=== PATIENT | female | born 1990 | race African-American/Black ===

== ENCOUNTER 2024-04-28 09:07 | Inpatient (IN) | payer OTHER, SELFPAY ==
--- NOTE | 2024-04-28 09:13 | ED_ITS ---
HPI - General Adult General Chief complaint: Psychiatric Symptoms Stated complaint: Crisis Time Seen by Provider: 04/28/24 09:13 Source: patient Mode of arrival: ambulatory Limitations: no limitations History of Present Illness ED Provider: Dorothy Garcia PA-C HPI narrative: Patient is a 33 year old assigned female at with a history of anxiety and recent wisdom tooth removal presenting to the emergency department today with suicidal ideation and increasing anxiety. Patient states that she has been having increasing anxiety and suicidal ideation. Patient denies any dizziness, lightheadedness, abdominal pain, nausea, vomiting, fever, chills, blurry vision, double vision, loss of vision, chest pain, difficulty breathing, shortness of breath, back pain, night sweats, pain with urination, increased urinary frequency, increased urinary urgency, blood in her urine or stool, syncope or a near syncopal episode, recent trauma or falls, bowel incontinence, bladder incontinence, or any other complaints at this time. Relieving factors: none Exacerbating factors: none Associated symptoms: denies other symptoms Treatments prior to arrival: none Related Data Home Medications ?Medication ?Instructions ?Recorded ?Confirmed amoxicillin 500 mg capsule 500 mg PO TID 04/28/24 04/28/24 escitalopram oxalate 10 mg tablet 10 mg PO DAILY 04/28/24 04/28/24 ibuprofen 800 mg tablet 800 mg PO TID 04/28/24 04/28/24 ondansetron HCl 4 mg tablet 4 mg PO Q8H PRN Nausea 04/28/24 04/28/24 Allergies Allergy/AdvReac Type Severity Reaction Status Date / Time No Known Allergies Allergy Verified 04/28/24 09:32 Review of Systems 2 Constitutional: Constitutional: Reports no additional constitutional complaints, Denies chills, Denies fever(s) and Denies night sweats Eyes: Eyes: Reports no additional eye complaints, Denies blurry vision, Denies change in vision, Denies diplopia, Denies eye discharge, Denies loss of vision and Denies eye pain ENT: Denies dizziness Cardiovascular: Cardiovascular: Reports no additional cardiovascular complaints, Denies chest pain, Denies lightheadedness, Denies Loss of Consciousness and Denies dyspnea Respiratory: Respiratory: Reports no additional respiratory complaints and Denies dyspnea Gastrointestinal: Gastrointestinal: Reports no additional gastrointestinal complaints, Denies abdominal pain, Denies melena, Denies hematochezia, Denies change in bowel habits and Denies change in stool character Genitourinary: Genitourinary: Denies hematuria, Denies urinary frequency, Denies dysuria, Denies urinary incontinence, Denies urinary hesitancy and Denies urinary urgency Musculoskeletal: Musculoskeletal: Reports no additional musculoskeletal complaints, Denies numbness and Denies tingling Neurologic: Denies dizziness, Denies loss of vision, Denies numbness and Denies tingling Psychiatric: Psychiatric: Reports anxiety, Denies homicidal ideation and Reports suicidal ideation Endocrine: Endocrine: Reports no additional endocrine complaints Hematologic/Lymphatic: Hematologic/Lymphatic: Reports no additional hematologic/lymphatic complaints Allergic/Immunologic: Allergic/Immunologic: Reports no additional allergic/immunologic complaints [facility] Past Medical History Attestation statement: The following information was validated with the patient. Source: old records reviewed and nursing notes reviewed Social History Social History Smoked in Last 30 Days: No Use of substances other than those prescribed or required for medical reasons: Yes Substance Use Type: Marijuana Substance Use Frequency: Occasionally Advance Directives: No Advance Directives Information Provided: Yes Patient : No Physical Exam ED Vital Signs: Vital Signs - 24 hr 04/28/24 09:31 04/28/24 09:32 Temperature 98.1 F Pulse Rate 74 Respiratory Rate 16 14 Blood Pressure 138/85 Pulse Oximetry 97 Oxygen Delivery Method Room Air BMI result Body Mass Index 57.7 Const General: cooperative, no acute distress, alert and awake Nutritional Appearance: well nourished Orientation/consciousness: patient oriented x3 Limitations: no limitations [facility] Head: Yes normal to inspection and Yes atraumatic Ears: hearing grossly normal bilaterally and external ears normal General nose exam: Normal external nose present, no nasal discharge noted and no epistaxis Face and sinus: Yes normal facial exam, No abrasion and No laceration Mouth: Normal oral and palatal mucosa present, no drooling and no muffled voice Eyes General: appearance normal, both eyes and all related structures Periorbital: periorbital findings normal Eyelids: Yes eyelids normal Conjunctivae: conjunctivae normal Pupils: Equal, round and reactive pupils present EOM: EOMs intact bilaterally Neck Neck: Yes normal visual inspection, Yes full ROM and Yes no lymphadenopathy Chest Chest palpation & inspection: normal inspection of the chest Resp Effort & Inspection: normal respiratory effort and able to speak in complete sentences GI Inspection: Yes normal to inspection Neuro General: patient oriented x3 and moves all extremities Cranial nerves: Yes Equal, round and reactive pupils present Cognition (Neuro): normal cognition Extrem General: Yes normal to inspection, Yes full ROM and Yes capillary refill normal Psych Appearance: grossly normal Mental Status: mental status grossly normal Affect: Sad affect present Attitude: cooperative Thought process: Normal thought process present Thought content: Suicidality present Medications Administered Generic Name Dose Route Start Last Admin Trade Name Jaspreet PRN Reason Stop Dose Admin Amoxicillin 500 mg 04/28/24 10:30 04/28/24 10:56 Amoxicillin 500 Mg Capsule PO 500 mg TID RIVER Administration Ibuprofen 800 mg 04/28/24 10:30 04/28/24 10:56 Ibuprofen 800 Mg Tablet PO 800 mg TID R[place] Administration Medical Decision Making Medical Decision Making MDM Narrative: Patient is a 33 year old assigned female at with a history of anxiety and recent wisdom tooth removal presenting to the emergency department today with increased anxiety and SI. Patient's physical exam was as noted in the physical exam portion of this note. Patient's blood work was unremarkable. Patient's urine showed no acute process. I explained my physical exam findings as well as all test results to the patient. I answered all questions asked by the patient. CARE team evaluated the patient and recommended inpatient level of care. Physician observation ended at 1304. Observation care revealed the the patient does meet necessity for psychiatric hospitalization. Final disposition discussed with the patient who verbalized understanding and agreement. Patient completed observation care at 1304, total time spent in observation care was 3 hours and 9 minutes. Patient verbalized agreement and understanding with this treatment plan and admission. Differential Diagnosis Differential Diagnoses: The differential diagnosis associated with the presentation includes Suicidal ideation Anxiety Admission/Observation Consideration of admission/observation: Escalation of care including admission/observation considered Patient admitted for psychiatric hospitalization. Consult Healthcare Provider Management of the patient was discussed with: Behavioral Health Provider (spoke to the CARE team as noted in the MDM Rationale portion of this note. ) Lab Data [facility] Lab Attestation statement: I reviewed the patient's lab results. My interpretation of these results are in the MDM Rationale portion of this note. 04/28/24 09:52 04/28/24 09:52 Labs: Lab Results 04/28/24 Range/Units 09:52 WBC 6.5 (4.8-10.8) X10*3/uL RBC 4.54 (4.20-5.50) X10*6/uL Hgb 13.5 (12.0-16.0) g/dl Hct 38.6 (37.0-47.0) % MCV 85.0 (80.0-98.0) fL MCH 29.7 (27.0-33.0) pg MCHC 35.0 (31.0-35.0) g/dl RDW 12.3 (11.0-16.0) % Plt Count 316 (160-400) X10*3/uL MPV 9.0 L (9.4-12.3) fL Immature Gran % (Auto) 0.0 (0.0-0.4) % Neut % (Auto) 66.1 (45-73) % Lymph % (Auto) 25.1 (20-40) % [place] % (Auto) 7.8 (2-11) % Eos % (Auto) 0.2 (0-4) % Baso % (Auto) 0.8 (0-2) % Lymph # (Auto) 1.6 (1.2-4.9) X10*3/uL [place] # (Auto) 0.5 (0.1-1.2) X10*3/uL Eos # (Auto) 0.0 (0.0-0.4) X10*3/uL Baso # (Auto) 0.1 (0.0-0.2) X10*3/uL Abs Immat Gran (auto) 0.00 (0.00-0.03) X10*3/uL Absolute Neuts (auto) 4.3 (2.0-8.3) x10*3/uL Absolute Nucleated RBC 0.000 (0.0-0.012) X10*3/uL Nucleated RBC % (auto) 0.0 (0.0-0.2) /100WBC Sodium 141 (135-145) mmol/L Potassium 3.5 (3.3-5.1) mmol/L Chloride 105 (96-108) mmol/L Carbon Dioxide 26 (22-29) mmol/L Anion Gap 14 (12-20) BUN 8 L (9-16) mg/dL Creatinine 0.83 (0.5-1.4) mg/dL Estim Creat Clear Calc 139.1 Estimated GFR > 60 Random Glucose 102 (60-115) mg/dL Calcium 9.8 (8.4-10.2) mg/dL Total Bilirubin 0.7 (0.0-1.0) mg/dL AST 17 (5-31) U/L ALT 28 (0-31) U/L Alkaline Phosphatase 76 (39-117) U/L Total Protein 7.6 (6.5-8.0) g/dL Albumin 4.4 (3.5-5.0) g/dL Salicylates < 5.0 L (15-30) mg/dL Acetaminophen < 3 (<30) mcg/mL Ethyl Alcohol < 10 mg/dL Critical Care Time Critical Care Time Critical Care Time: Yes Total Critical Care Time: 34 Attestation: I spent 34 minutes of Critical Care Time with this patient. This does not include time spent on separately reported billable procedures. Discharge Plan Discharge Clinical Impression: Suicidal ideation Patient Disposition: Admitted As Inpatient Interventions: [place]-Suicide Risk Severity Scale Last Done: 04/28/24 09:33
[2024-04-28 09:31] VITALS: BP 138/85; PULSE 74; RESP 16; TEMP 36.7; O2SAT 97; BMI 57.7
[2024-04-28 09:32] VITALS: RESP 14
[2024-04-28 09:59] LABS: MANUAL DIFF FLAG NO
[2024-04-28 10:00] LABS: Basophils Absolute Auto 0.1 X10*3/uL (0.0-0.2); Basophils Percent Auto 0.8 % (0-2); Eosinophils Percent Auto 0.2 % (0-4); Hematocrit 38.6 % (37.0-47.0); Hemoglobin 13.5 g/dl (12.0-16.0); Lymphocytes Absolute Auto 1.6 X10*3/uL (1.2-4.9); Lymphocytes Percent Auto 25.1 % (20-40); Mean Corpuscular Hemoglobin 29.7 pg (27.0-33.0); Monocytes Absolute Auto 0.5 X10*3/uL (0.1-1.2); Monocytes Percent Auto 7.8 % (2-11); Neutrophils Absolute Auto 4.3 x10*3/uL (2.0-8.3); Neutrophils Percent Auto 66.1 % (45-73); Platelet Count 316 X10*3/uL (160-400); Red Blood Count 4.54 X10*6/uL (4.20-5.50); Red Cell Distribution Width 12.3 % (11.0-16.0); White Blood Count 6.5 X10*3/uL (4.8-10.8)
[2024-04-28 10:22] LABS: Alanine Aminotransferase 28 U/L (0-31); Albumin Level 4.4 g/dL (3.5-5.0); Alkaline Phosphatase 76 U/L (39-117); Anion Gap 14 (12-20); Aspartate Amino Transferase 17 U/L (5-31); Bilirubin Total 0.7 mg/dL (0.0-1.0); Blood Urea Nitrogen 8 mg/dL (9-16); Calcium 9.8 mg/dL (8.4-10.2); Carbon Dioxide 26 mmol/L (22-29); Chloride 105 mmol/L (96-108); Creatinine Clr Calc Pharmacy 139.1; Estimated Glomerular Filt Rate > 60; Ethanol < 10 mg/dL; Glucose Random 102 mg/dL (60-115); Potassium 3.5 mmol/L (3.3-5.1); Sodium 141 mmol/L (135-145); Total Protein 7.6 g/dL (6.5-8.0)
[2024-04-28 10:23] LABS: Acetaminophen LAB < 3 mcg/mL (<30)
[2024-04-28] MEDS: Ibuprofen 800 MG TABLET PO ×3 (10:56→20:41)
[2024-04-28] MEDS: Amoxicillin 500 MG CAPSULE PO ×3 (10:56→20:43)
[2024-04-28 11:08] LABS: Salicylate < 5.0 mg/dL (15-30)
--- NOTE | 2024-04-28 12:57 | PC.NURSE ---
pt reminded of need for urine sample, she states she will try when she gets up
[2024-04-28] MEDS: hydrOXYzine HCL 25 MG TABLET PO (13:42)
[2024-04-28 14:22] VITALS: BMI 53.1
[2024-04-28 14:24] VITALS: BP 136/80; PULSE 70; RESP 16; TEMP 36.6; O2SAT 97
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
[2024-04-28 15:56] LABS: Urine Pregnancy NEGATIVE (NEGATIVE)
[2024-04-28 15:58] LABS: Amphetamine Screen Urine Not Detected (Not Detect); Barbiturates, Urine Not Detected (Not Detect); Benzodiazepines Screen Urine Not Detected (Not Detect); Buprenorphine Scr Not Detected (Not Detect); Cannabinoid Screen Urine POSITIVE (Not Detect); Cocaine Screen Urine Not Detected (Not Detect); Fentanyl, urine Not Detected (Not Detect); Methadone Screen, Urine Not Detected (Not Detect); Opiate Screen Urine Not Detected (Not Detect); Oxycodone Screen Urine Not Detected (Not Detect); Phencyclidine Screen Urine Not Detected (Not Detect)
[2024-04-28 15:59] LABS: UPreg QC Valid YES
[2024-04-28 16:13] LABS: Appearance Urine Cloudy; Color Urine Dark Yellow; Glucose Urine UA Negative (Negative); Leukocyte Esterase Urine Negative (Negative); Nitrite Urine Negative (Negative); Specific Gravity - Urine >= 1.030 (1.005-1.025); UMIC TRIGGER UA YES; Urine Blood Negative (Negative); Urine Ketones 80 mg/dL (Negative); Urine Protein 30 (1+) mg/dL (Neg-Trace)
[2024-04-28 17:55] LABS: Bacteria Urine None Seen (None Seen); RBC Urine 0-2 /HPF (0-2); WBC Urine 0-5 /HPF (0-5)
[2024-04-28 20:00] VITALS: BP 122/55; PULSE 61; TEMP 36.4; O2SAT 98
[2024-04-28] MEDS: Mirtazapine 7.5 MG TABLET PO (20:42)
[2024-04-28] MEDS: diphenhydrAMINE HCL 25 MG CAPSULE 50 MG PO (20:42)
[2024-04-29] MEDS: traZODone HCL 50 MG TABLET PO (02:51)
[2024-04-29] MEDS: hydrOXYzine HCL 25 MG TABLET PO (03:56)
--- NOTE | 2024-04-29 04:06 | PC.NURSE ---
Patient medicated with Benadryl 50 mg at HS with minimal effect, Trazadone at 0245 and Atarax at 0400. Will continue to monitor.
[2024-04-29 08:00] VITALS: BP 129/69; PULSE 75; TEMP 36.9; O2SAT 99
[2024-04-29 08:51] LABS: Estimated Average Glucose 108 mg/dL; Hemoglobin A1c % 5.4 % (<6.0)
[2024-04-29 09:01] LABS: Alanine Aminotransferase 28 U/L (0-31); Albumin Level 4.6 g/dL (3.5-5.0); Alkaline Phosphatase 87 U/L (39-117); Anion Gap 15 (12-20); Aspartate Amino Transferase 21 U/L (5-31); Bilirubin Total 0.7 mg/dL (0.0-1.0); Blood Urea Nitrogen 7 mg/dL (9-16); Carbon Dioxide 27 mmol/L (22-29); Chloride 105 mmol/L (96-108); Cholesterol 195 mg/dL (<200); Creatinine Clr Calc Pharmacy 117.6; Estimated Glomerular Filt Rate > 60; Glucose Fasting 95 mg/dL (60-99); HDL Cholesterol 33 mg/dL (>40); LDL Cholesterol Calculated 145 mg/dL (<100); Potassium 3.8 mmol/L (3.3-5.1); Sodium 143 mmol/L (135-145); Triglycerides 88 mg/dL (<150)
[2024-04-29 09:16] LABS: Free T4 (Free Thyroxine) 1.12 ng/dL (0.71-1.85); Thyroid Stimulating Hormone 0.41 uIU/mL (0.32-4.0)
[2024-04-29] MEDS: Ibuprofen 800 MG TABLET PO ×3 (09:24→20:42)
[2024-04-29] MEDS: Amoxicillin 500 MG CAPSULE PO ×3 (09:24→20:41)
[2024-04-29] MEDS: Escitalopram Oxalate 10 MG TABLET PO (09:24)
[2024-04-29 09:31] LABS: Folate 11.3 ng/mL (> or = 4.0); Vitamin B12 814 pg/mL (200-900)
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
[2024-04-29 20:28] VITALS: BP 134/63; PULSE 88; RESP 16; TEMP 36.7; O2SAT 97
[2024-04-29] MEDS: cloNIDine HCL 0.1 MG TABLET PO (20:42)
[2024-04-30 08:00] VITALS: BP 128/83; PULSE 97; RESP 18; TEMP 37.1; O2SAT 97
[2024-04-30] MEDS: Ibuprofen 800 MG TABLET PO ×3 (08:31→20:41)
[2024-04-30] MEDS: Escitalopram Oxalate 20 MG TABLET PO (08:31)
[2024-04-30] MEDS: Amoxicillin 500 MG CAPSULE PO ×3 (08:32→20:41)
[2024-04-30] MEDS: hydrOXYzine HCL 25 MG TABLET PO (08:47)
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
[2024-04-30 13:13] VITALS: BP 123/75
[2024-04-30] MEDS: cloNIDine HCL 0.1 MG TABLET PO ×2 (13:13→20:41)
[2024-04-30 20:36] VITALS: BP 116/63; PULSE 81; RESP 18; TEMP 36.4; O2SAT 99
[2024-05-01] MEDS: traZODone HCL 100 MG TABLET PO (00:50)
[2024-05-01] MEDS: hydrOXYzine HCL 25 MG TABLET PO (01:31)
[2024-05-01 08:00] VITALS: BP 126/75; PULSE 68; RESP 18; TEMP 36.7; O2SAT 98
[2024-05-01] MEDS: Ibuprofen 800 MG TABLET PO ×3 (08:01→20:39)
[2024-05-01] MEDS: Escitalopram Oxalate 20 MG TABLET PO (08:02)
[2024-05-01] MEDS: Amoxicillin 500 MG CAPSULE PO ×3 (08:02→20:39)
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
[2024-05-01 20:00] VITALS: BP 134/78; PULSE 81; RESP 16; TEMP 36.4; O2SAT 97
[2024-05-01] MEDS: cloNIDine HCL 0.1 MG TABLET PO (20:39)
[2024-05-02 04:49] VITALS: BP 124/66
[2024-05-02] MEDS: hydrOXYzine HCL 25 MG TABLET PO (04:49)
[2024-05-02] MEDS: cloNIDine HCL 0.1 MG TABLET PO ×2 (04:49→21:38)
[2024-05-02 07:55] VITALS: BP 90/54; PULSE 59; RESP 17; TEMP 37.4; O2SAT 97
[2024-05-02] MEDS: Ibuprofen 800 MG TABLET PO ×2 (08:23→18:36)
[2024-05-02] MEDS: Amoxicillin 500 MG CAPSULE PO ×3 (08:23→21:38)
[2024-05-02] MEDS: Escitalopram Oxalate 20 MG TABLET PO (08:24)
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
[2024-05-02 19:47] VITALS: BP 134/88; PULSE 81; RESP 18; TEMP 36.2
[2024-05-02] MEDS: QUEtiapine Fumarate 50 MG TABLET PO (21:39)
[2024-05-03] MEDS: traZODone HCL 100 MG TABLET PO (01:48)
[2024-05-03] MEDS: diphenhydrAMINE HCL 25 MG CAPSULE 50 MG PO (01:48)
[2024-05-03 08:00] VITALS: BP 104/58; PULSE 67; RESP 16; TEMP 37.2; O2SAT 97
[2024-05-03] MEDS: Amoxicillin 500 MG CAPSULE PO ×3 (08:53→20:57)
[2024-05-03] MEDS: Escitalopram Oxalate 20 MG TABLET PO (08:53)
[2024-05-03] MEDS: Ibuprofen 800 MG TABLET PO ×3 (09:07→20:57)
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
[2024-05-03] MEDS: hydrOXYzine HCL 25 MG TABLET PO (18:52)
[2024-05-03 20:00] VITALS: BP 133/61; PULSE 78; RESP 16; TEMP 36.3; O2SAT 98
[2024-05-03] MEDS: cloNIDine HCL 0.1 MG TABLET PO (20:57)
[2024-05-04] MEDS: hydrOXYzine HCL 25 MG TABLET PO (04:09)
[2024-05-04 08:00] VITALS: BP 125/68; PULSE 79; TEMP 37.4; O2SAT 98
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
[2024-05-04] MEDS: Escitalopram Oxalate 20 MG TABLET PO (10:00)
[2024-05-04] MEDS: Amoxicillin 500 MG CAPSULE PO ×3 (10:00→20:44)
[2024-05-04] MEDS: QUEtiapine Fumarate 25 MG TABLET PO (10:07)
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
[2024-05-04] MEDS: Ibuprofen 800 MG TABLET PO ×2 (14:40→20:44)
[2024-05-04] MEDS: risperiDONE 0.5 MG TABLET PO ×2 (15:18→20:44)
[2024-05-04 19:41] VITALS: BP 136/73; PULSE 86; RESP 15; TEMP 36.4; O2SAT 99
[2024-05-04] MEDS: cloNIDine HCL 0.1 MG TABLET PO (20:45)
[2024-05-04] MEDS: QUEtiapine Fumarate 50 MG TABLET PO (20:49)
[2024-05-05 07:00] VITALS: BMI 52.9
[2024-05-05 07:51] VITALS: BP 136/73; PULSE 81; RESP 20; TEMP 36.9; O2SAT 98
[2024-05-05] MEDS: Escitalopram Oxalate 20 MG TABLET PO (08:14)
[2024-05-05] MEDS: cloNIDine HCL 0.1 MG TABLET PO ×2 (08:14→22:40)
[2024-05-05] MEDS: Ibuprofen 800 MG TABLET PO ×3 (08:15→22:40)
[2024-05-05] MEDS: Amoxicillin 500 MG CAPSULE PO ×3 (08:15→22:41)
[2024-05-05] MEDS: risperiDONE 0.5 MG TABLET PO ×2 (08:15→22:41)
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
[2024-05-05 20:00] VITALS: BP 144/81; PULSE 81; RESP 18; TEMP 36.5; O2SAT 98
[2024-05-05] MEDS: QUEtiapine Fumarate 50 MG TABLET PO (22:41)
[2024-05-05] MEDS: traZODone HCL 100 MG TABLET PO (22:41)
--- NOTE | 2024-05-06 | ECG_ITS ---
Test Reason : qtc Blood Pressure : / mmHG Vent. Rate : 072 BPM Atrial Rate : 072 BPM P-R Int : 214 ms QRS Dur : 108 ms QT Int : 392 ms P-R-T Axes : 051 062 051 degrees QTc Int : 429 ms Sinus rhythm with 1st degree A-V block Nonspecific ST and T wave abnormality Abnormal ECG No previous ECGs available Referred By: Sandeep Burgess Electronically Signed By:DAR PALMA
[2024-05-06 08:00] VITALS: BP 98/62; PULSE 68; TEMP 36.8; O2SAT 98
[2024-05-06] MEDS: Ibuprofen 800 MG TABLET PO ×2 (09:45→21:16)
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
[2024-05-06 10:23] VITALS: BP 98/62
[2024-05-06] MEDS: cloNIDine HCL 0.1 MG TABLET PO ×2 (10:23→21:17)
[2024-05-06] MEDS: Amoxicillin 500 MG CAPSULE PO ×3 (10:24→21:17)
[2024-05-06] MEDS: Escitalopram Oxalate 20 MG TABLET PO (10:24)
[2024-05-06] MEDS: risperiDONE 0.5 MG TABLET PO ×2 (10:26→21:17)
[2024-05-06 20:00] VITALS: BP 115/73; PULSE 79; RESP 14; TEMP 36.4; O2SAT 94
[2024-05-06] MEDS: QUEtiapine Fumarate 50 MG TABLET PO (21:17)
[2024-05-06] MEDS: QUEtiapine Fumarate 25 MG TABLET PO (21:17)
[2024-05-06] MEDS: traZODone HCL 100 MG TABLET PO (21:21)
[2024-05-07 07:57] VITALS: BP 131/78; PULSE 79; TEMP 36.8; O2SAT 98
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
[2024-05-07] MEDS: Amoxicillin 500 MG CAPSULE PO ×3 (09:02→21:31)
[2024-05-07] MEDS: risperiDONE 0.5 MG TABLET PO ×2 (09:02→21:31)
[2024-05-07 09:03] VITALS: BP 131/78
[2024-05-07] MEDS: Escitalopram Oxalate 10 MG TABLET 30 MG PO (09:03)
[2024-05-07] MEDS: cloNIDine HCL 0.1 MG TABLET PO ×2 (09:03→21:31)
[2024-05-07] MEDS: Ibuprofen 800 MG TABLET PO ×2 (09:06→21:43)
[2024-05-07 19:50] VITALS: BP 98/57; PULSE 66; RESP 16; TEMP 36.4; O2SAT 99
[2024-05-07 21:28] VITALS: BP 115/65; PULSE 66; TEMP 36.4
[2024-05-07] MEDS: QUEtiapine Fumarate 50 MG TABLET PO (21:31)
[2024-05-07] MEDS: traZODone HCL 100 MG TABLET PO (21:31)
[2024-05-08 07:42] VITALS: BP 137/77; PULSE 78; RESP 16; TEMP 37.2; O2SAT 98
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
[2024-05-08] MEDS: Escitalopram Oxalate 10 MG TABLET 30 MG PO (08:08)
[2024-05-08 08:09] VITALS: BP 137/77
[2024-05-08] MEDS: Amoxicillin 500 MG CAPSULE PO (08:09)
[2024-05-08] MEDS: risperiDONE 0.5 MG TABLET PO ×2 (08:09→20:48)
[2024-05-08] MEDS: cloNIDine HCL 0.1 MG TABLET PO ×2 (08:09→20:49)
[2024-05-08 20:00] VITALS: BP 132/78; PULSE 69; RESP 16; TEMP 36.5; O2SAT 99
[2024-05-08] MEDS: Ibuprofen 800 MG TABLET PO (22:45)
[2024-05-08] MEDS: QUEtiapine Fumarate 50 MG TABLET PO (23:50)
[2024-05-08] MEDS: hydrOXYzine HCL 25 MG TABLET PO (23:50)
[2024-05-09 08:07] VITALS: BP 120/69; PULSE 71; TEMP 36.6; O2SAT 98
[2024-05-09 09:22] VITALS: BP 120/69
[2024-05-09] MEDS: Escitalopram Oxalate 10 MG TABLET 30 MG PO (09:22)
[2024-05-09] MEDS: cloNIDine HCL 0.1 MG TABLET PO ×2 (09:22→21:10)
[2024-05-09] MEDS: risperiDONE 0.5 MG TABLET PO ×2 (09:23→21:10)
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
[2024-05-09 20:00] VITALS: BP 122/71; PULSE 81; RESP 16; TEMP 36.8; O2SAT 98
[2024-05-09] MEDS: QUEtiapine Fumarate 50 MG TABLET PO (21:10)
[2024-05-09] MEDS: Ibuprofen 800 MG TABLET PO (21:10)
[2024-05-09] MEDS: traZODone HCL 100 MG TABLET PO (21:10)
[2024-05-10 08:00] VITALS: BP 113/56; PULSE 72; RESP 20; TEMP 36.4; O2SAT 98
[2024-05-10] MEDS: risperiDONE 0.5 MG TABLET PO (08:53)
[2024-05-10] MEDS: Escitalopram Oxalate 10 MG TABLET 30 MG PO (08:53)
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
[2024-05-10 09:14] VITALS: BP 113/56
[2024-05-10] MEDS: cloNIDine HCL 0.1 MG TABLET PO (09:14)
== END 2024-05-10 11:18 | disposition home or self-care (01) | DRG 751 ==
LOC: HO.ED 10:14 → HO.PM5 13:17
PROVIDERS: Physician Assistant Medical; Admitting Provider Clinical Nurse Specialist Psychiatric/Mental Health, Adult; Emergency Provider Emergency Medicine; PCP Physician Assistant Medical; Visit Provider Psychiatry & Neurology Psychiatry
DX: F33.2 Major depressive disorder, recurrent severe without psychotic features (principal); R45.851 Suicidal ideations; F43.10 Post-traumatic stress disorder, unspecified; Z79.899 Other long term (current) drug therapy
CPT/HCPCS: 36415; 80053; 80061; 80143; 80179; 80307; 81001; 81003; 81025; 82607; 82746; 83036; 84439; 84443; 85025; 93005; 99285

== ENCOUNTER → 2024-04-28 13:08 | Outpatient (BNV) | payer OTHER, SELFPAY | PROVIDERS: Admitting Provider Clinical Nurse Specialist Psychiatric/Mental Health, Adult; Emergency Provider Emergency Medicine; PCP Physician Assistant Medical; Visit Provider Psychiatry & Neurology Psychiatry | DX: F33.2 Major depressive disorder, recurrent severe without psychotic features (principal); F43.11 Post-traumatic stress disorder, acute | CPT/HCPCS: 90792; 99231; 99232; 99239 ==

== ENCOUNTER → 2024-06-10 08:00 | Outpatient (BNV) | payer BC, SELFPAY | PROVIDERS: Visit Provider Psychiatry & Neurology Psychiatry | DX: F33.2 Major depressive disorder, recurrent severe without psychotic features (principal); F43.10 Post-traumatic stress disorder, unspecified; F14.11 Cocaine abuse, in remission | CPT/HCPCS: 90792; 99213; 99214 ==

== ENCOUNTER 2024-06-22 08:45 | Outpatient (RCR) | payer BC, SELFPAY ==
[2024-06-08 09:45] VITALS: BMI 56.1
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
--- NOTE | 2024-06-09 16:07 | HO.PHP ---
Client's case has been opened and reviewed in team.
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
--- NOTE | 2024-06-17 12:42 | P.PNPSP_ITS ---
Subjective Subjective Date of Service: 06/17/24 Reason For Visit: MDD Interim History: Patient seen for follow-up. Reviewed past week. No major events or issues. it's been good back on the risperidone, taking it once a day in the AM it stabilizes me really helps with irritability, agitation and emotional reactivity. She's not acting out at boyfriend, being snippy, giving dirty looks like I'm gonna rip off his head . Has not needed to take more than once a day. 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 She denies any adverse effects of stiffness in jaw/neck, dysphagia, sedation or other AE related to risperidone. She says she has been eyeing the clonidine as she felt more physically calm with it and would like to utilize it again as a prn for anxiety, especially since the hydroxyzine can make her too drowsy to take during the day. She feels clonidine during the day will be a better fit (rather than risperidone and hydroxyzine) once she has returned to work. People at work can piss me off . She is able to manage herself professionally, no behavioral issues, and is not concerned she will pop off at anyone (says it's just usual grind of dealing with being a brown person in a majority white environment, racial, gender biases, microaggressions, and other unrelated typical workplace drama. but says it takes a toll on her physically restraining herself from speaking out more. I end up carrying a lot of it as anxiety in my body . Sleeping 7-8 hours without the need for PRNs. Appetite and energy intact. Denies any SI, HI, AH, VH. Medication Compliance: Yes Side effects from medications: No Attending Groups: Yes Review of Systems Acute medical concerns: No Mental Status Exam Mental Status Exam Narrative: Alert, oriented, in no acute distress. Calm, cooperative, engaged. No psychomotor agitation or neurovegetative retardation. Eye contact maintained. Mood anxious, depressed, sometimes irritable. Affect variable, appropriate without notable irritability or lability. Speech normal. Thought process linear, coherent, goal-directed. Thought content related to stressors, transient helplessness, no hopelessness noted, denies SI, intention, urge or plan. Endorses transient vague aggressive ideation with intention, urge or plan. Denies any HI. No paranoia or delusional content elicited. No evidence of psychosis. Insight and judgment - fair but adequate Diagnostics Vital Signs (24Hr): BMI result Body Mass Index 56.1 Assessment & Plan Assessment & Plan (1) MDD (major depressive disorder), recurrent severe, without psychosis: Status: Acute Code(s): F33.2 - Major depressive disorder, recurrent severe without psychotic features Assessment and Plan: r/o other mood disorders (2) PTSD (post-traumatic stress disorder): Status: Acute Code(s): F43.10 - Post-traumatic stress disorder, unspecified (3) Cocaine abuse in remission: Status: Acute Code(s): F14.11 - Cocaine abuse, in remission Plan continue escitalopram 20 mg qd restart clonidine 0.1 mg BOD prn anxiety continue risperidone 0.5 mg BID prn irritability/agitation continue trazodone 100 mg qhs prn sleep (patient not using/needing) may consider discontinuing and using hydroxyzine for sleep continue hydroxyzine 25 mg TID prn anxiety. And sleep continue quetiapine 50 mg qhs prn insomnia (patient not using/needing) may consider discontinuing patient not longer taking ondansetron Routine lab work ordered EKG, routine for baseline QTc for medication considerations UDS as indicated MassPat reviewed Continue to monitor as per protocol Certification I certify that partial hospital treatment is medically necessary due to the symptoms and problems resulting from the patient's mental illness and the failure to treat the patient at the partial hospital level of care would likely result in the patient requiring inpatient psychiatric care which could not be prevented at a less intensive level of care. Total time managing care of this patient today ____ minutes. Discharge Plan Discharge Attending provider: Sdynee Mcdonald Medications: Continued escitalopram oxalate 20 mg tablet 20 mg PO DAILY 30 Days Qty: 30 1RF hydroxyzine HCl 25 mg Tablet 25 mg PO Q6H PRN (Reason: Anxiety) 30 Days Qty: 60 1RF trazodone 100 mg Tablet 100 mg PO BEDTIME PRN (Reason: Insomnia) 30 Days Qty: 30 1RF quetiapine 50 mg Tablet 50 mg PO BEDTIME PRN (Reason: sleep) 30 Days Qty: 30 0RF Changed risperidone 0.5 mg tablet 0.5 mg PO BID PRN (Reason: irritability/agitation) Qty: 30 0RF No Action ondansetron HCl 4 mg tablet 4 mg PO Q8H PRN (Reason: Nausea) Print Language: Urdu
--- NOTE | 2024-06-21 21:13 | P.PNPSP_ITS ---
Subjective Subjective Date of Service: 06/21/24 Reason For Visit: MDD Interim History: Patient seen for follow-up, anticipating discharge at the end of program today.? Reports no acute issues or concerns. Medication compliant, medications well- tolerated. Denies any adverse effects. Reports having been nervous about starting here, but overall says it went well. I'm glad I did it. Worked on processing PTSD, Before I was feeling very dehumanized... I'm regaining my confidence . Feeling nervous about returning to work in 2 weeks, otherwise feels good. Has not been irritable. Mood is stable.? Denies any hopelessness or SI. Denies thoughts of harming self or others at this time. Denies any aggressive ideation or HI. Denies any paranoia or AH or VH. Sleep, appetite, energy stable. Medication Compliance: Yes Side effects from medications: No Attending Groups: Yes Review of Systems Acute medical concerns: No Mental Status Exam Mental Status Exam Narrative: Alert, oriented, in no acute distress. Calm, cooperative. Mood stable, affect appropriate. Speech normal. Goal-directed, future-oriented, denies any helplessness, hopelessness or SI.? No aggressive ideation or HI. No paranoia or delusional content elicited. No evidence of psychosis. Insight and judgment fair-good. Diagnostics Vital Signs (24Hr): BMI result Body Mass Index 56.1 Assessment & Plan Assessment & Plan (1) MDD (major depressive disorder), recurrent severe, without psychosis: Status: Acute Code(s): F33.2 - Major depressive disorder, recurrent severe without psychotic features Assessment and Plan: r/o other mood disorders (2) PTSD (post-traumatic stress disorder): Status: Acute Code(s): F43.10 - Post-traumatic stress disorder, unspecified (3) Cocaine abuse in remission: Status: Acute Code(s): F14.11 - Cocaine abuse, in remission Plan Discharge from [facility] Continue regular medications No further refills needed Will defer further medication management to outpatient provider *Safety plan reviewed *Discharge diagnoses, treatment course, discharge plan have been reviewed with patient (including medication regime, medication management, potential side effects) as well as treatment rationale were also revisited *Discharge paperwork signed and given to patient, copy sent for scanning to chart Patient educated on: diagnosis, medication risk/benefits and substance abuse Informed Consent: understands Reason for contiued partial hosp. stay Substantial Risk for: stable for discharge Certification I certify that partial hospital treatment is medically necessary due to the symptoms and problems resulting from the patient's mental illness and the failure to treat the patient at the partial hospital level of care would likely result in the patient requiring inpatient psychiatric care which could not be prevented at a less intensive level of care. Total time managing care of this patient today _30___ minutes. Discharge Plan Discharge Attending provider: Sydnee Mcdonald Medications: Continued escitalopram oxalate 20 mg tablet 20 mg PO DAILY 30 Days Qty: 30 1RF trazodone 100 mg Tablet 100 mg PO BEDTIME PRN (Reason: Insomnia) 30 Days Qty: 30 1RF quetiapine 50 mg Tablet 50 mg PO BEDTIME PRN (Reason: sleep) 30 Days Qty: 30 0RF Changed hydroxyzine HCl 25 mg Tablet 25 mg PO BID PRN (Reason: Anxiety) 30 Days Qty: 60 1RF risperidone 0.5 mg tablet 0.5 mg PO BID PRN (Reason: irritability/agitation) Qty: 30 0RF Discontinued ondansetron HCl 4 mg tablet 4 mg PO Q8H PRN (Reason: Nausea) Print Language: Citizen [place]
== END 2024-06-22 23:59 | disposition home or self-care (01) ==
LOC: HO.PHPA 08:45
PROVIDERS: Visit Provider Psychiatry & Neurology Psychiatry
DX: F33.2 Major depressive disorder, recurrent severe without psychotic features (principal); F43.10 Post-traumatic stress disorder, unspecified; F14.11 Cocaine abuse, in remission; Z79.899 Other long term (current) drug therapy
CPT/HCPCS: 90791; 90853